=== PATIENT | male | born 1950 | race Caucasian/White ===

== ENCOUNTER 2018-03-26 08:13 | Outpatient (CLI) | payer MEDICARE, OTHER ==
[2018-03-26 08:39] LABS: Estimated GFR-MDRD - POC Greater than 90
--- NOTE | 2018-03-26 10:21 | CT ---
CT OF CHEST WITH CONTRAST: Indication: Pulmonary nodule. No prior imaging available. Patient is not aware of prior imaging to [facility] for comparison purposes. FINDINGS: There is diffuse granulomatous calcifications throughout the chest as well as within the imaged upper abdomen. There is no evidence of pulmonary mass. Mild pulmonary emphysema is present. No effusion or lobar consolidation. There is scattered vascular disease. Incidental note of a hyperdensity, which i nvolves the anterior aspect of the lateral segment left hepatic lobe, indeterminate on the basis of t his exam. There is diffuse osseous degenerative change. There is subtle chronic rib deformities noted posteriorly within the left chest which may be related to sequellae from remote trauma. IMPRESSION: 1. Granulomatous, calcified nodules of the pulmonary parenchyma is addition to numerous granuloma eliseo cifications of the chest and abdomen. 2. Indeterminate hyperdensity likely a vascular process within the anterior aspect of the lateral seg ment left hepatic lobe although indeterminate. A dedicated follow up hemangioma protocol CT of abdome n is warranted for more definitive characterization. Code T POS: [facility]
== END 2018-03-26 08:14 | disposition home or self-care (01) ==
LOC: BICCT 08:13
PROVIDERS: ATTEND Family Medicine
DX: R91.8 Other nonspecific abnormal finding of lung field (principal); J98.4 Other disorders of lung
CPT/HCPCS: 71260; 82565

== ENCOUNTER 2018-04-04 12:22 | Outpatient (CLI) | payer MEDICARE, OTHER ==
--- NOTE | 2018-04-04 14:09 | CT ---
CT ABDOMEN WITH AND WITHOUT IV CONTRAST: HISTORY: Abnormal finding in the liver on CT chest of 03/26/2018. FINDINGS: Correlation is made with the CT chest dated 03/26/2018. There are calcified granulomas in the lung bases, liver, and spleen. No calcified gallstones are see n. No free air, free fluid, or lymphadenopathy is noted in the abdomen. There are vascular calcific ations without evidence of aneurysmal dilatation of the abdominal aorta. There are degenerative hair ges in the spine. The pancreas, adrenal glands, and left kidney are normal. A low-density lesion in the right kidney is likely a cyst. The focal area of hyperenhancement during arterial phase imaging in the anterior aspect of the latera l segment of the left lobe of the liver is again seen and shows slower decreasing intensity on subseq uent phases of imaging. This lesion is better visualized on the CT scan of the chest than on the cur rent CT scan of the abdomen. A calcified portocaval lymph node is present. IMPRESSION: Hyperenhancing focus in the lateral segment of the left lobe of the liver. Differential diagnosis in cludes flash-filling hemangioma, benign or malignant neoplasia (primary or secondary). A followup ex am is recommended in 3 months. A metastatic workup looking for a primary malignancy should also be p erformed. CODE T
[2018-04-04] MEDS ORDERED: ISOVUE-370 76%-LOCM 1 ML ONE (17:02)
== END 2018-04-04 12:23 | disposition home or self-care (01) ==
LOC: BICCT 12:22
PROVIDERS: ATTEND Family Medicine
DX: R93.2 Abnormal findings on diagnostic imaging of liver and biliary tract (principal)
CPT/HCPCS: 74170

== ENCOUNTER 2018-04-17 10:48 | Outpatient (CLI) | payer MEDICARE, OTHER ==
[2018-04-17] MEDS ORDERED: ISOVUE-370 76%-LOCM 1 ML ONE (11:23)
--- NOTE | 2018-04-17 13:58 | CT ---
CONTRAST ENHANCED CT IMAGES SOFT TISSUE NECK: HISTORY: Hoarseness for 1 year. Paralysis. FINDINGS: Coronal and sagittal reconstruction images were obtained. Images demonstrate some S-shaped curvature of the nasal septum. The visualized ethmoid sinuses as well as the sphenoid sinuses and maxillary sinuses are well aerated . The parotid glands are unremarkable. No significant evidence of pharyngeal mucosal lesions seen in the nasopharynx or oral cavity. There is right-sided medial displacement of the true vocal cord with thickening of the right true cor d and enhancement. This is concerning for a possible right focal cord malignancy including squamous cell carcinoma. Correlate with biopsy. The thyroid cartilage, cricoid cartilage, and arytenoids are unremarkable. The right and left common carotid arteries are unremarkable. The patient has asymmetrically enlarged right internal jugular vein. Paratracheal lymph node calcification is seen. Multilevel mid and lower cervical changes of spondylosis seen. 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 POS: [facility]
== END 2018-04-17 10:49 | disposition home or self-care (01) ==
LOC: BICCT 10:48
PROVIDERS: ATTEND Otolaryngology Otolaryngic Allergy
DX: R49.0 Dysphonia (principal); R49.8 Other voice and resonance disorders; H93.13 Tinnitus, bilateral; H90.3 Sensorineural hearing loss, bilateral
CPT/HCPCS: 70491

== ENCOUNTER 2022-07-05 12:53 | Outpatient (CLI) | payer MEDICARE ==
[2022-07-05 14:10] LABS: #Eosinphils 0.2 10x3/uL (0.0-0.5); #Monocytes 0.4 10x3/uL (0.0-1.1); #Neutrophils 3.7 10x3/uL (1.5-8.4); %Basophils 0.7 % (0.0-2.0); %Lymphocytes 24.7 % (18.0-47.0); %Neutrophils 64.4 % (40.0-75.0); Mean Corpuscular Hemoglobin 29.3 pg (27.0-33.0); Mean Corpuscular Volume 88.8 fl (81.2-95.1); Mean Platelet Volume 10.2 fl (7.4-10.4); Platelet Count 201 10x3/uL (150-450); RBC Distribution Width 13.9 % (11.5-14.5); Red Blood Cell (RBC) Count 5.46 10x6/uL (4.32-5.72); White Blood Cell (WBC) Count 5.7 10x3/uL (3.5-10.5)
[2022-07-05 14:14] LABS: INR-International Normal Ratio 1.1; Prothrombin Time 11.4 sec (9.5-12.1)
[2022-07-05 14:19] LABS: Anion Gap 16 mmol/L (10-20); BUN (Urea Nitrogen) 15 mg/dL (8.4-25.7); Calc. Creatinine Clearance 0 mL/min (70-130); Calcium 9.4 mg/dL (7.8-10.44); Carbon Dioxide 23 mmol/L (23-31); Chloride 106 mmol/L (98-107); Estimated GFR 71; Glucose 94 mg/dL (83-110); Potassium 4.8 mmol/L (3.5-5.1); Sodium 140 mmol/L (136-145)
== END 2022-07-05 12:54 | disposition home or self-care (01) ==
LOC: LABBT 12:53
PROVIDERS: ATTEND Orthopaedic Surgery
DX: Z01.818 Encounter for other preprocedural examination (principal); M17.12 Unilateral primary osteoarthritis, left knee
CPT/HCPCS: 80048; 85025; 85610; 87081; 93005; 93010

== ENCOUNTER 2022-07-10 07:58 | Observation (INO) | payer MEDICARE ==
[2022-07-05 10:55] VITALS: BMI 30.8
[2022-07-10] MEDS ORDERED: Tranexamic Acid 1,000 MG/10 ML VIAL ONE (08:25)
[2022-07-10] MEDS ORDERED: Vancomycin (BATCH) 1.5 GRAM/300 ML BAG ONE (08:25)
[2022-07-10] MEDS ORDERED: Sodium Chloride 0.9% 0 ML ONE (08:25)
[2022-07-10] MEDS ORDERED: Midazolam HCl 2 mg/2 ml Vial ONE (10:30)
[2022-07-10] MEDS ORDERED: Bupivacaine PF 0.5% 30 ML VIAL ONE ×2 (10:30→15:08)
[2022-07-10] MEDS ORDERED: fentaNYL 50 mcg/mL 1 mL Vial ONE (10:30)
[2022-07-10] MEDS ORDERED: Bupivacaine HCl 0.5%/Epinephrine 1:200,000/PF 30 ml Vial ONE (10:50)
[2022-07-10] MEDS ORDERED: Propofol 1,000 MG/100 ML VIAL IV ONE (10:53)
[2022-07-10] MEDS ORDERED: fentaNYL 50 mcg/mL 1 mL Vial SLOW IVP PRN ×2 (11:02→12:00)
[2022-07-10] MEDS ORDERED: Sodium Chloride 0.9% 100 ML ONE (11:06)
[2022-07-10] MEDS ORDERED: CEFAZOLIN 2 GM VIAL ONE (11:06)
[2022-07-10] MEDS ORDERED: Zolpidem Tartrate 5 MG TAB PO PRN ×2 (11:15→11:21)
[2022-07-10] MEDS ORDERED: Ondansetron PF 4 MG/2 ML Vial IVP PRN ×2 (11:15→11:21)
[2022-07-10] MEDS ORDERED: HYDROcodone/Acetaminophen 10/325 mg Tablet PO PRN (11:15)
[2022-07-10] MEDS ORDERED: traMADol HCl 50 MG TAB PO PRN ×2 (11:15)
[2022-07-10] MEDS ORDERED: Ropivacaine 0.2% 550 ML 550 ML NERVE BLCK SCH (11:15)
[2022-07-10] MEDS ORDERED: Promethazine HCl 25 MG/ML VIAL IM PRN ×2 (11:15→11:21)
[2022-07-10] MEDS ORDERED: Fentanyl 100 MCG/2 ML VIAL SLOW IVP PRN (11:21)
[2022-07-10] MEDS ORDERED: diphenhydrAMINE 25 MG CAP PO PRN (11:21)
[2022-07-10] MEDS ORDERED: Acetaminophen 325 MG TAB PO PRN (11:21)
[2022-07-10] MEDS: Ketorolac Tromethamine 30 MG/ML VIAL IVP SCH ×3 (14:28→22:46)
[2022-07-10] MEDS: Sodium Chloride 0.9% 1,000 ML IV SCH ×2 (14:38→22:06)
[2022-07-10] MEDS: HYDROcodone/Acetaminophen 10/325 mg Tablet PO PRN (20:05)
[2022-07-10] MEDS: Aspirin 81 mg Enteric Coated Tablet PO SCH (20:05)
[2022-07-10] MEDS: CEFAZOLIN 2 GM in Sodium Chloride 0.9% 100 ML IVPB SCH (20:06)
[2022-07-10] MEDS ORDERED: Ezetimibe 10 MG TAB PO SCH (21:00)
[2022-07-10] MEDS ORDERED: Rosuvastatin 10 MG TAB PO SCH (21:00)
[2022-07-11] MEDS: CEFAZOLIN 2 GM in Sodium Chloride 0.9% 100 ML IVPB SCH (03:42)
[2022-07-11] MEDS: HYDROcodone/Acetaminophen 10/325 mg Tablet PO PRN (03:43)
[2022-07-11 04:38] VITALS: TEMP 98.1
[2022-07-11] MEDS: Ketorolac Tromethamine 30 MG/ML VIAL IVP SCH (05:28)
[2022-07-11] MEDS ORDERED: Levothyroxine Sodium 75 MCG TAB PO SCH (06:00)
[2022-07-11 07:21] LABS: Hemoglobin 13.3 g/dL (14.0-18.0); Mean Corpuscular HGB CONC 33.7 g/dL (32.0-36.0); Mean Corpuscular Hemoglobin 30.3 pg (27.0-31.0); Mean Corpuscular Volume 89.8 fl (78.0-98.0); Mean Platelet Volume 8.1 fL (7.4-10.4); Platelet Count 154 10x3/uL (130-400); RBC Distribution Width 12.8 % (11.5-14.5); Red Blood Cell (RBC) Count 4.38 mill/uL (4.70-6.10); White Blood Cell (WBC) Count 5.8 10x3/uL (4.8-10.8)
[2022-07-11 08:26] VITALS: BP 157/81
[2022-07-11] MEDS: Sodium Chloride 0.9% 1,000 ML IV SCH (08:33)
[2022-07-11] MEDS ORDERED: Cyanocobalamin (Vitamin B-12) 1,000 MCG TAB PO SCH (09:00)
[2022-07-11] MEDS ORDERED: Senokot S 8.6-50 MG TAB PO SCH (09:00)
[2022-07-11] MEDS ORDERED: Cholecalciferol 1,000 UNITS (25 MCG) TAB PO SCH (09:00)
[2022-07-11] MEDS ORDERED: Ferrous Gluconate 324 MG TAB PO SCH (09:00)
[2022-07-11] MEDS ORDERED: Multivitamin W/ Minerals 1 TAB PO SCH (09:00)
[2022-07-11] MEDS: Aspirin 81 mg Enteric Coated Tablet PO SCH (09:02)
[2022-07-12] MEDS ORDERED: CeleCOXIB 100 MG CAP PO SCH (21:00)
== END 2022-07-11 11:34 | disposition home or self-care (01) ==
LOC: SDC 07:58 → SURG A 13:54 → SDC 14:04
PROVIDERS: ADMIT Orthopaedic Surgery; ATTEND Orthopaedic Surgery
PROC: 0SRD0J9 Replacement of Left Knee Joint with Synthetic Substitute, Cemented, Open Approach (ICD-10-PCS; principal; 2022-07-10)
DX: M17.0 Bilateral primary osteoarthritis of knee (principal); E78.5 Hyperlipidemia, unspecified; E07.9 Disorder of thyroid, unspecified; Z85.850 Personal history of malignant neoplasm of thyroid; Z79.890 Hormone replacement therapy; Z79.899 Other long term (current) drug therapy; Z88.0 Allergy status to penicillin; Z96.642 Presence of left artificial hip joint
CPT/HCPCS: 20985; 27447; 73560; 85027; 97110 ×2; 97116 ×2; 97530 ×2; A4306; C1713; C1776; J3010; J3370; 36415; 96374; 96375; 96376; G0378; J1885; J2250; J2704; J2795; J3490; S0020